=== PATIENT | female | born 1955 | race Caucasian/White ===

== ENCOUNTER 2022-08-13 21:26 | Outpatient (CLI) | payer MEDICARE, OTHER | END 2022-08-13 23:59 | disposition critical access hospital (66) | LOC: EMS 21:26 | DX: R10.11 Right upper quadrant pain (principal); R10.12 Left upper quadrant pain; R11.0 Nausea | CPT/HCPCS: A0425; A0427 ==

== ENCOUNTER 2022-08-13 21:43 | Inpatient (IN) | payer MEDICARE, OTHER ==
--- NOTE | 2022-08-13 22:07 | ED Physician Documentation ---
PD HPI ABD PAIN - Stated complaint Stated Complaint: ABD PX - Chief complaint Chief Complaint: Abd Pain - History obtained from History obtained from: Patient, EMS - Additional information Additional information: Brought in by ambulance. HPI is from patient as well as from EMS. Patient complains of abdominal pain, nausea and vomiting. The symptoms started at approximately 7:30 PM tonight while she was at home at rest. Patient denies history of similar symptoms. Patient feels as if she is constipated, feels urge to defecate despite very little stool output tonight. There are no exacerbating or ameliorating factors to these symptoms. Review of Systems Constitutional: denies: Fever, Chills, Sweats Cardiac: reports: Reviewed and negative Respiratory: reports: Reviewed and negative GI: reports: Abdominal Pain, Abdominal Swelling, Nausea, Vomiting. denies: Diarrhea, Bloody / black stool : denies: Dysuria, Frequency Musculoskeletal: denies: Back pain PD PAST MEDICAL HISTORY - Past Medical History Past Medical History: Yes Endocrine/Autoimmune: HyPOthyroidism Other Past Medical History: peripheral neuropathy - Past Surgical History Past Surgical History: No - Present Medications Home Medications: Ambulatory Orders Medication Instructions Recorded Confirmed Alendronate [Fosamax] 70 mg PO Q7D 08/14/22 08/14/22 Alpha Lipoic Acid 600 mg PO DAILY 08/14/22 08/14/22 Aspirin [Vazalore] 81 mg PO DAILY 08/14/22 08/14/22 Calcium Carbonate [Calcium] 1,200 mg PO DAILY 08/14/22 08/14/22 Cholecalciferol [Vitamin D3] 5,000 unit PO DAILY 08/14/22 08/14/22 DULoxetine [Cymbalta] 60 mg PO BID 08/14/22 08/14/22 Hydrocodone/Acetaminophen 1 each PO Q4HR PRN 08/14/22 08/14/22 [Hydrocodone-Acetamin 7.5-300] Levothyroxine [Synthroid] 112 mcg PO QDAC 08/14/22 08/14/22 Lisinopril [Zestril] 40 mg PO DAILY 08/14/22 08/14/22 Magnesium Oxide [Magnesium] 400 mg PO DAILY 08/14/22 08/14/22 Pregabalin [Lyrica] 25 mg PO DAILY 08/14/22 08/14/22 Vitamin B Complex 1 each PO DAILY 08/14/22 08/14/22 - Allergies Allergies/Adverse Reactions: Allergies Allergy/AdvReac Type Severity Reaction Status Date / Time azithromycin Allergy Unknown Verified 08/13/22 21:53 - Living Situation Living Situation: reports: With spouse/s.o. Living Arrangement: reports: At home PD ED PE NORMAL - Vitals Vital signs reviewed: Yes - General General: Alert and oriented X 3, Well developed/nourished, Other (appears to be in moderate painful distress) - HEENT HEENT: Other (dry mucous membranes) - Neck Neck: Supple, no meningeal sign - Cardiac Cardiac: RRR, No murmur - Respiratory Respiratory: No respiratory distress, Clear bilaterally - Abdomen Abdomen: Soft, Non distended, Other (TTP across lower abdomen, predominantly left-sided; no rebound tenderness) - Derm Derm: Normal color, Warm and dry Results - Vitals Vitals: Vital Signs - 24 hr 08/14/22 08/14/22 08/14/22 01:20 02:30 03:00 Heart Rate 70 73 74 Respiratory 18 18 18 Rate Blood Pressure 177/98 H 181/98 H 193/103 H O2 Saturation 93 92 92 08/14/22 08/14/22 08/14/22 04:07 04:30 05:00 Heart Rate 73 78 80 Respiratory 16 19 18 Rate Blood Pressure 191/102 H 173/100 H 160/106 H O2 Saturation 92 92 93 08/14/22 08/14/22 08/14/22 05:30 06:00 06:30 Heart Rate 79 74 90 Respiratory 21 14 19 Rate Blood Pressure 166/82 H 161/80 H 124/91 H O2 Saturation 94 94 97 08/14/22 08/14/22 08/14/22 07:00 08:00 08:30 Heart Rate 72 77 81 Respiratory 17 21 14 Rate Blood Pressure 150/75 H 178/86 H 160/77 H O2 Saturation 94 94 91 L 08/14/22 08/14/22 08/14/22 09:00 09:30 10:00 Heart Rate 81 82 87 Respiratory 15 13 14 Rate Blood Pressure 173/83 H 155/73 H 153/68 H O2 Saturation 92 91 L 91 L 08/14/22 08/14/22 08/14/22 10:30 11:00 11:30 Heart Rate 82 89 80 Respiratory 13 20 20 Rate Blood Pressure 159/70 H 122/83 H 105/61 O2 Saturation 91 L 97 95 08/14/22 08/14/22 08/14/22 12:00 12:30 13:00 Heart Rate 80 88 81 Respiratory 16 17 19 Rate Blood Pressure 104/54 L 102/81 H 144/81 H O2 Saturation 93 97 97 08/14/22 08/14/22 08/14/22 13:30 14:30 19:00 Heart Rate 84 85 90 Respiratory 16 17 18 Rate Blood Pressure 142/83 H 125/106 H O2 Saturation 91 L 95 95 08/14/22 08/14/22 08/14/22 19:30 20:00 20:30 Heart Rate 84 85 87 Respiratory 21 20 20 Rate Blood Pressure O2 Saturation 96 97 97 08/14/22 08/14/22 08/14/22 21:00 21:30 22:00 Heart Rate 80 82 86 Respiratory 17 16 19 Rate Blood Pressure O2 Saturation 92 92 91 L 08/14/22 08/14/22 08/14/22 22:30 23:00 23:30 Heart Rate 83 81 81 Respiratory 17 22 21 Rate Blood Pressure 152/92 H 164/91 H 163/90 H O2 Saturation 96 95 95 08/15/22 00:00 Heart Rate 81 Respiratory 22 Rate Blood Pressure 165/95 H O2 Saturation 95 Oxygen O2 Source Room air - Labs Labs: Laboratory Tests 08/13/22 08/13/22 08/13/22 22:03 22:03 22:24 WBC 20.5 H RBC 4.73 Hgb 14.3 Hct 44.9 MCV 94.9 MCH 30.2 MCHC 31.8 L RDW 12.9 Plt Count 317 MPV 9.9 Neut # (Auto) Not Reportable Lymph # (Auto) Not Reportable [place] # (Auto) Not Reportable Eos # (Auto) Not Reportable Baso # (Auto) Not Reportable Absolute Nucleated RBC Not Reportable Total Counted 100 Band Neuts % (Manual) 1 Reactive Lymphs % (Man) 5 Abnorm Lymph % (Manual) 0 Nucleated RBC % Not Reportable Neutrophils # (Manual) 15.2 H Lymphocytes # (Manual) 3.3 Monocytes # (Manual) 1.8 H Eosinophils # (Manual) 0.0 Basophils # (Manual) 0.2 H Differential Comment MANUAL DIFFERENTIAL Platelet Estimate NORMAL (130-450,000) Platelet Morphology NORMAL APPEARANCE RBC Morph Micro Appear NORMAL APPEARANCE Sodium 143 Potassium 4.2 Chloride 107 Carbon Dioxide 24 Anion Gap 12.0 BUN 26 H Creatinine 1.3 H Estimated GFR (MDRD) 41 L Glucose 152 H Lactic Acid Calcium 9.3 Total Bilirubin 0.8 AST 37 ALT 22 Alkaline Phosphatase 94 C-Reactive Protein < 1.0 Total Protein 7.8 Albumin 4.3 Globulin 3.5 Albumin/Globulin Ratio 1.2 Lipase 68 H Urine Color Urine Clarity Urine pH Ur Specific [place] Urine Protein Urine Glucose (UA) Urine Ketones Urine Occult Blood Urine Nitrite Urine Bilirubin Urine Urobilinogen Ur Leukocyte Esterase Ur Microscopic Review Urine Culture Comments 08/13/22 08/14/22 08/14/22 23:10 03:18 07:55 WBC 14.2 H RBC 4.67 Hgb 14.1 Hct 43.5 MCV 93.1 MCH 30.2 MCHC 32.4 RDW 13.1 Plt Count 284 MPV 10.0 Neut # (Auto) 12.0 H Lymph # (Auto) 1.1 L [place] # (Auto) 1.1 H Eos # (Auto) 0.0 Baso # (Auto) 0.0 Absolute Nucleated RBC 0.00 Total Counted Band Neuts % (Manual) Reactive Lymphs % (Man) Abnorm Lymph % (Manual) Nucleated RBC % 0.0 Neutrophils # (Manual) Lymphocytes # (Manual) Monocytes # (Manual) Eosinophils # (Manual) Basophils # (Manual) Differential Comment Platelet Estimate Platelet Morphology RBC Morph Micro Appear Sodium Potassium Chloride Carbon Dioxide Anion Gap BUN Creatinine Estimated GFR (MDRD) Glucose Lactic Acid 3.6 H* Calcium Total Bilirubin AST ALT Alkaline Phosphatase C-Reactive Protein Total Protein Albumin Globulin Albumin/Globulin Ratio Lipase Urine Color YELLOW Urine Clarity CLEAR Urine pH 5.5 Ur Specific [place] <=1.005 Urine Protein NEGATIVE Urine Glucose (UA) NEGATIVE Urine Ketones NEGATIVE Urine Occult Blood TRACE-INTA Urine Nitrite NEGATIVE Urine Bilirubin NEGATIVE Urine Urobilinogen 0.2 (NORMAL) Ur Leukocyte Esterase NEGATIVE Ur Microscopic Review NOT INDICATED Urine Culture Comments NOT INDICATED 08/14/22 08/14/22 07:55 07:55 WBC RBC Hgb Hct MCV MCH MCHC RDW Plt Count MPV Neut # (Auto) Lymph # (Auto) [place] # (Auto) Eos # (Auto) Baso # (Auto) Absolute Nucleated RBC Total Counted Band Neuts % (Manual) Reactive Lymphs % (Man) Abnorm Lymph % (Manual) Nucleated RBC % Neutrophils # (Manual) Lymphocytes # (Manual) Monocytes # (Manual) Eosinophils # (Manual) Basophils # (Manual) Differential Comment Platelet Estimate Platelet Morphology RBC Morph Micro Appear Sodium 143 Potassium 3.9 Chloride 111 Carbon Dioxide 24 Anion Gap 8.0 BUN 21 H Creatinine 0.9 Estimated GFR (MDRD) 62 L Glucose 148 H Lactic Acid 1.8 Calcium 8.5 Total Bilirubin AST ALT Alkaline Phosphatase C-Reactive Protein Total Protein Albumin Globulin Albumin/Globulin Ratio Lipase Urine Color Urine Clarity Urine pH Ur Specific [place] Urine Protein Urine Glucose (UA) Urine Ketones Urine Occult Blood Urine Nitrite Urine Bilirubin Urine Urobilinogen Ur Leukocyte Esterase Ur Microscopic Review Urine Culture Comments - Rads (name of study) CT A/P with IV and PO contrast Relevant Findings:: Prelim report reviewed, See rad report PD Medical Decision Making - ED course Complexity details: reviewed results, re-evaluated patient, considered differential, d/w patient ED course: Significant findings on blood tests include leukocytosis (WBC 20.5), elevated lactate (3.6) although normal crp, mildly elevated bun (26) and creatinine (1.3). Normal LFTs. Minimally elevated lipase (68). The CT of the abdomen pelvis is interpreted by the radiologist as "colon wall thickening of the descending and sigmoid portions consistent with colitis. infectious etiology is likely. inflammatory bowel disease is not entirely ruled out. Additioanlly, ischemic colitis is not reuled out, but the vessels are unremarkable and there is no pneumatosis. prior cholecystectomy". Patient received intravenous fentanyl by EMS on route without significant improvement in her symptoms. Of note, patient had persistent hypotensive readings early in her ER stay, with most of her systolic blood pressures in the 80s. She was given intravenous saline and, after 2 L of IV normal saline, her blood pressures improved significantly and, in fact, she subsequently had consistently hypertensive readings. This did at least allow for stronger pain medications to be given for her ongoing pain, and she was given, initially, 0.5 mg IV Dilaudid with little effect, subsequently given 1 mg IV Dilaudid with modest improvement. On subseq uent reevaluations, she continued to experience recurrent abdominal pain, at times moaning in pain. She was given more IV Dilaudid and it became increasingly apparent that patient would certainly benefit from admission to the inpatient setting for symptomatic control. Given the radiologist interpretation of the CT, with specific mention that the appearance was more suggestive of an infectious etiology, she was also given intravenous ciprofloxacin and metronidazole. During my overnight shift, there are no beds available at [facility], and thus the patient is held in the emergency department overnight and care of patient is turned over to the oncoming ER physician (Dr. Urena) at end of my shift pending bed availability. Departure - Departure Disposition: ED Place in Observation Clinical Impression: Abdominal pain, Colitis, acute Condition: Stable
[2022-08-13] MEDS ORDERED: SODIUM CHLORIDE 0.9% 1,000 ML IV STA ×2 (22:20→22:48)
[2022-08-13] MEDS ORDERED: GLYCERIN PEDIATRIC SUPP PR STA (22:20)
[2022-08-13] MEDS ORDERED: ONDANSETRON 4 MG/2 ML VIAL IVP STA (22:21)
[2022-08-13 22:23] LABS: ALBUMIN 4.3 g/dL (3.2-5.5); ALBUMIN/GLOBULIN RATIO 1.2 (1.0-2.2); BILIRUBIN,TOTAL 0.8 mg/dL (0.2-1.0); CALCIUM 9.3 mg/dL (8.5-10.3); CREATININE 1.3 mg/dL (0.4-1.0); POTASSIUM 4.2 mmol/L (3.5-5.0); TOTAL PROTEIN 7.8 g/dL (6.7-8.2)
[2022-08-13 22:29] LABS: BASOPHILS % (AUTO) 0.7 %; EOSINOPHILS % (AUTO) 0.5 %; HCT - HEMATOCRIT 44.9 % (37.0-47.0); HGB - HEMOGLOBIN 14.3 g/dL (12.0-16.0); LYMPHOCYTES % (AUTO) 10.3 %; MEAN CORPUSCULAR HEMOGLOBIN 30.2 pg (27.0-31.0); MEAN CORPUSCULAR HGB CONC 31.8 g/dL (32.0-36.0); MEAN CORPUSCULAR VOLUME 94.9 fL (81.0-99.0); MEAN PLATELET VOLUME 9.9 fL (7.9-10.8); MONOCYTES % (AUTO) 7.5 %; NEUTROPHILS % (AUTO) 80.3 %; PLT - PLATELET COUNT 317 10^3/uL (130-450); RED BLOOD COUNT 4.73 10^6/uL (4.20-5.40); RED CELL DISTRIBUTION WIDTH 12.9 % (12.0-15.0); WHITE BLOOD COUNT 20.5 x10^3/uL (4.8-10.8)
[2022-08-13 22:31] LABS: ABNORMAL LYMPHS % (MANUAL) 0 %
[2022-08-13] MEDS ORDERED: iohexoL-300 100 ML VIAL ONE (22:34)
[2022-08-13] MEDS ORDERED: DIATRIZOATE MEGLU/DIATRIZO SOD 30 ML BOTTLE PO ONE (22:34)
[2022-08-13 22:48] LABS: BAND NEUTROPHILS % (MANUAL) 1 %; BASOPHILS # (MANUAL) 0.2 10^3/uL (0-0.1); BASOPHILS % (MANUAL) 1 %; LYMPHOCYTES # (MANUAL) 3.3 10^3/uL (1.5-3.5); LYMPHOCYTES % (MANUAL) 11 %; MONOCYTES # (MANUAL) 1.8 10^3/uL (0.0-1.0); NEUTROPHILS # (MANUAL) 15.2 10^3/uL (1.5-6.6); REACTIVE LYMPHS % (MANUAL) 5 %
[2022-08-13 22:49] LABS: DIFFERENTIAL COMMENT MANUAL DIFFERENTIAL; PLATELET ESTIMATE, MANUAL NORMAL (130-450,000) (NORMAL); PLATELET MORPHOLOGY NORMAL APPEARANCE (NORMAL); RBC MORPHOLOGY (MULTIPLE) NORMAL APPEARANCE (NORMAL)
[2022-08-14] MEDS ORDERED: HYDROmorphone 1 MG/ML CARPUJECT IVP STA ×3 (02:14→07:41)
[2022-08-14] MEDS ORDERED: iohexoL-300 100 ML VIAL IVP ONE (02:31)
[2022-08-14 03:30] LABS: BILIRUBIN,URINE NEGATIVE (NEGATIVE); GLUCOSE, URINE (UA) NEGATIVE (NEGATIVE); KETONES,URINE (UA) NEGATIVE (NEGATIVE); LEUKOCYTE ESTERASE, URINE NEGATIVE (NEGATIVE); NITRITE,URINE NEGATIVE (NEGATIVE); OCCULT BLOOD,URINE TRACE-INTA (NEGATIVE); PH,URINE 5.5 PH (5.0-7.5); PROTEIN,URINE NEGATIVE (NEGATIVE); UROBILINOGEN,URINE 0.2 (NORMAL) E.U./dL (NORMAL)
[2022-08-14 03:31] LABS: CLARITY,URINE CLEAR (CLEAR)
[2022-08-14] MEDS ORDERED: SODIUM CHLORIDE 0.9% 1,000 ML IV STA ×2 (04:03)
[2022-08-14] MEDS ORDERED: CIPROFLOXACIN 400 MG/200 ML 400 MG/200 ML BAG IV STA (04:03)
[2022-08-14] MEDS ORDERED: metroNIDAZOLE 500 MG/100 ML 500 MG/100 ML BAG IV ONE (04:03)
[2022-08-14] MEDS ORDERED: ONDANSETRON 4 MG/2 ML VIAL IVP STA (07:41)
[2022-08-14 08:04] LABS: BASOPHILS % (AUTO) 0.3 %; HCT - HEMATOCRIT 43.5 % (37.0-47.0); HGB - HEMOGLOBIN 14.1 g/dL (12.0-16.0); LYMPHOCYTES # (AUTO) 1.1 10^3/uL (1.5-3.5); LYMPHOCYTES % (AUTO) 7.5 %; MEAN CORPUSCULAR HEMOGLOBIN 30.2 pg (27.0-31.0); MEAN CORPUSCULAR HGB CONC 32.4 g/dL (32.0-36.0); MEAN CORPUSCULAR VOLUME 93.1 fL (81.0-99.0); MONOCYTES # (AUTO) 1.1 10^3/uL (0.0-1.0); MONOCYTES % (AUTO) 7.4 %; NEUTROPHILS % (AUTO) 84.3 %; PLT - PLATELET COUNT 284 10^3/uL (130-450); RED BLOOD COUNT 4.67 10^6/uL (4.20-5.40); RED CELL DISTRIBUTION WIDTH 13.1 % (12.0-15.0); WHITE BLOOD COUNT 14.2 x10^3/uL (4.8-10.8)
[2022-08-14 08:10] LABS: CALCIUM 8.5 mg/dL (8.5-10.3); CREATININE 0.9 mg/dL (0.4-1.0); POTASSIUM 3.9 mmol/L (3.5-5.0)
[2022-08-14] MEDS ORDERED: KETOROLAC 15 MG/ML VIAL IVP STA (08:45)
--- NOTE | 2022-08-14 09:26 | CT Report ---
PROCEDURE: CT abdomen pelvis with contrast INDICATIONS: abdominal pain CONTRAST: 90 ML OMNI 300 TECHNIQUE: After the administration of contrast, 5 mm thick sections acquired from the diaphragms to the symphys is. 5 mm thick coronal and sagittal reformats were acquired. For radiation dose reduction, the foll owing was used: automated exposure control, adjustment of mA and/or kV according to patient size. COMPARISON: FINDINGS: Image quality: Excellent. Lung bases and heart: Unremarkable. Liver: No solid mass. Gallbladder and biliary tree: Cholecystectomy Spleen: No splenomegaly. Pancreas: No pancreatic ductal dilation. Adrenals: No adrenal nodule. Kidneys and ureters: No hydronephrosis. No renal cystic lesion which requires follow up. No solid mas s. Bowel and peritoneum: Colonic wall thickening and pericolonic inflammatory change noted involving the distal transverse and descending colon with relative sparing of the sigmoid, consistent with colitis . No pneumatosis or free air Diverticulosis without evidence of diverticulitis. Lymph nodes: No central or retroperitoneal adenopathy. Vessels: No infrarenal aortic aneurysm. PELVIS Reproductive organs: Unremarkable. Bladder: No abnormal wall thickening, accounting for underdistension. Pelvic lymph nodes: No pelvic adenopathy by size criteria. Bones: Degenerative disc disease and arthropathy Other: No significant ventral or inguinal hernia. IMPRESSION: Left-sided colitis without evidence of abscess, obstruction or pneumatosis. Differential would includ e infectious and less likely ischemic colitis Chronic changes as above Note: Final report is concordant with preliminary interpretation provided by [employer] Reviewed by: Todd Cui MD on 08/14/2022 8:25 AM MANA Approved by: Todd Cui MD on 08/14/2022 8:25 AM AKIRIS Station ID: [id number]
[2022-08-14] MEDS: HYDROmorphone 1 MG/ML CARPUJECT IVP PRN ×2 (13:21→20:05)
[2022-08-14] MEDS ORDERED: LACTATED RINGERS 1,000 ML IV STA (13:56)
--- NOTE | 2022-08-14 14:00 | ED Physician Documentation ---
ED Addendum - Addendum Addendum: 08/14/22 13:58 I have checked in on the patient periodically since change of shift this morning. She has been tolerating ice chips and was requesting sips of water or clear liquids. She has been having intermittent increases of lower abdominal crampy pain and has gotten repeat doses of pain medicine. She had received Cipro and Flagyl this morning of approximately 5 to 6 AM. I will enter repeat dosings for twice a day as well as some anti-inflammatory dosing. The patient has tenderness in the lower abdomen but no percussion no rebound. She is still not tolerating oral intake too well and needing repeat medicines for pain. As such she would still need to be maintained treatment here in the hospital. We do not have any discharges available today. I would anticipate the patient's treatment to be shorter duration with likely a day or 2. I discussed with the patient potential attempts at transfer versus continued treatment here in the ER with possible discharges later or tomorrow if she is still not well. The patient did not have a particular preference per se. I will have our assembler unit just check with nearby facilities and see if there are any beds available. However there had not been any for other patients earlier in the day so most likely the patient will maintain her hospital treatment here in the ER.
[2022-08-14] MEDS: KETOROLAC 15 MG/ML VIAL IVP SCH ×2 (18:18→21:55)
[2022-08-14] MEDS: metroNIDAZOLE 500 MG/100 ML 500 MG/100 ML BAG IV SCH ×2 (18:19→21:55)
[2022-08-14] MEDS: CIPROFLOXACIN 400 MG/200 ML 400 MG/200 ML BAG IV SCH ×2 (19:23→21:55)
[2022-08-15] MEDS: HYDROmorphone 1 MG/ML CARPUJECT IVP PRN ×3 (00:21→14:18)
--- NOTE | 2022-08-15 01:56 | ED Physician Documentation ---
ED Addendum - Addendum Addendum: 08/15/22 01:50 67-year-old female left my care at shift change was seen yesterday in the emergency department and diagnosed with colitis. She indicates to me that she had not had a bowel movement in 3 days which is quite unusual for her. She takes 7-1/2 mg hydrocodone 6 tablets/day chronically for back pain. She has not developed constipation associated with the use of this narcotic. She felt that she had severe pain associated with attempting to have a bowel movement and she reached down below to remove stool manually which she was a successful at. She continued to have a sensation of requiring a bowel movement and severe pain. She called the ambulance and was transported to the hospital. An enema was applied and the patient was able to have a full bowel movement her work-up included a CT scan of the abdomen and pelvis which demonstrated the presence of colitis in the left colon. The patient was started on Cipro and Flagyl intravenously as well as intravenous fluid. She appeared septic when she arrived here with a white count of 20,000 and a lactate of 3.8 and the source. She has had improvement overnight in her lactate and and her white blood cell count. She continues to have pain and some blood in her bowel movements. She has required intravenous Dilaudid for pain control and she remains on IV fluids. During the day today she was able to take something orally. 08/15/22 03:29 At [address] Nunez our stem assembler today and he will admit the patient for continued care.
--- NOTE | 2022-08-15 04:32 | HISTORY & PHYSICAL EXAMINATION ---
Chief Complaint - Chief Complaint Chief Complaint: abd pain History of Present Illness - History of Present Illness HPI Comment/Other: pt presents with abd pain + difficulty having bm, developing over past 1-2 days. she has h/o same about 8 yr ago, resulting in colitis, but she states symptoms were not as severe. denies fevers, chills or vomiting. while in ER, pt was hypotensive and noted to have leukocytosis. CT abd/pelvis noted L sided colitis. pt denies abdominal trauma. she does take hydrocodone daily d/t chronic back pain. History - Past Medical History Endocrine/Autoimmune: reports: HyPOthyroidism Other Past Medical History: peripheral neuropathy - Family & Social History Family History Comment/Other: htn Living arrangement: At home Living Situation: With spouse/s.o. - Substance History Use: Uses substance without health or social issues: NONE Meds/Allgy - Home Medications Home Medications: Ambulatory Orders Medication Instructions Recorded Confirmed Alendronate [Fosamax] 70 mg PO Q7D 08/14/22 08/14/22 Alpha Lipoic Acid 600 mg PO DAILY 08/14/22 08/14/22 Aspirin [Vazalore] 81 mg PO DAILY 08/14/22 08/14/22 Calcium Carbonate [Calcium] 1,200 mg PO DAILY 08/14/22 08/14/22 Cholecalciferol [Vitamin D3] 5,000 unit PO DAILY 08/14/22 08/14/22 DULoxetine [Cymbalta] 60 mg PO BID 08/14/22 08/14/22 Hydrocodone/Acetaminophen 1 each PO Q4HR PRN 08/14/22 08/14/22 [Hydrocodone-Acetamin 7.5-300] Levothyroxine [Synthroid] 112 mcg PO QDAC 08/14/22 08/14/22 Lisinopril [Zestril] 40 mg PO DAILY 08/14/22 08/14/22 Magnesium Oxide [Magnesium] 400 mg PO DAILY 08/14/22 08/14/22 Pregabalin [Lyrica] 100 mg PO TID 08/14/22 08/15/22 Vitamin B Complex 1 each PO DAILY 08/14/22 08/14/22 - Allergies Allergies/Adverse Reactions: Allergies Allergy/AdvReac Type Severity Reaction Status Date / Time azithromycin Allergy Unknown Verified 08/13/22 21:53 Review of Systems - Other Findings Other Findings: 14 pt review done with positives per hpi; all others reviewed as negative Exam - Vital Signs Vital Signs: Vital Signs x48h Pulse Resp BP Pulse Ox 08/15/22 03:30 90 21 155/88 H 95 08/15/22 03:00 82 20 147/85 H 91 L 08/15/22 02:30 83 17 146/72 H 93 08/15/22 02:00 84 17 144/70 H 92 08/15/22 01:30 85 18 91 L 08/15/22 01:00 87 17 131/67 H 92 08/15/22 00:30 85 18 133/64 H 93 08/15/22 00:00 81 22 165/95 H 95 08/14/22 23:30 81 21 163/90 H 95 08/14/22 23:00 81 22 164/91 H 95 08/14/22 22:30 83 17 152/92 H 96 08/14/22 22:00 86 19 91 L 08/14/22 21:30 82 16 92 08/14/22 21:00 80 17 92 - Physical Exam Comments/Other: gen - aaox3, uncomfortable but cooperative with questions heent - eomi, nc/at heart - rrr lungs - ctab abd - soft, diffuse tenderness, bsx4 msk - no acute trauma noted or reported Conclusion/Plan - Lab Results Fish Bones: 08/15/22 05:48 08/15/22 05:48 - Other Other Results/Comments: pt with - - colitis in setting of constipation will check stool studies continue cipro + flagyl, IVF - severe constipation in setting of opioid-induced constipation contributory to above s/p enema in ER, with good bm, feeling better pt counseled on diet and fiber supplements - abd pain d/t above tylenol and toradol prn for now holding off on opioids for now f/u labs, cultures, replete electrolytes further orders per clinical course
[2022-08-15] MEDS ORDERED: SODIUM CHLORIDE FLUSH 0.9% 10 ML SYRINGE IVP PRN (04:36)
[2022-08-15] MEDS ORDERED: ONDANSETRON ODT 4 MG TABLET TL PRN (04:53)
[2022-08-15] MEDS ORDERED: KETOROLAC 15 MG/ML VIAL IVP PRN (05:00)
[2022-08-15 05:57] LABS: BASOPHILS # (AUTO) 0.1 10^3/uL (0.0-0.1); BASOPHILS % (AUTO) 0.4 %; EOSINOPHILS # (AUTO) 0.1 10^3/uL (0.0-0.7); EOSINOPHILS % (AUTO) 0.4 %; HCT - HEMATOCRIT 39.6 % (37.0-47.0); HGB - HEMOGLOBIN 12.8 g/dL (12.0-16.0); LYMPHOCYTES # (AUTO) 1.8 10^3/uL (1.5-3.5); LYMPHOCYTES % (AUTO) 13.9 %; MEAN CORPUSCULAR HEMOGLOBIN 29.8 pg (27.0-31.0); MEAN CORPUSCULAR HGB CONC 32.3 g/dL (32.0-36.0); MEAN CORPUSCULAR VOLUME 92.3 fL (81.0-99.0); MEAN PLATELET VOLUME 9.9 fL (7.9-10.8); MONOCYTES # (AUTO) 1.2 10^3/uL (0.0-1.0); MONOCYTES % (AUTO) 9.2 %; NEUTROPHILS # (AUTO) 9.8 10^3/uL (1.5-6.6); NEUTROPHILS % (AUTO) 75.7 %; PLT - PLATELET COUNT 225 10^3/uL (130-450); RED BLOOD COUNT 4.29 10^6/uL (4.20-5.40)
[2022-08-15 06:08] LABS: ALBUMIN 3.4 g/dL (3.2-5.5); ALBUMIN/GLOBULIN RATIO 1.1 (1.0-2.2); CALCIUM 8.3 mg/dL (8.5-10.3); CREATININE 0.6 mg/dL (0.4-1.0); POTASSIUM 3.4 mmol/L (3.5-5.0); TOTAL PROTEIN 6.6 g/dL (6.7-8.2)
[2022-08-15 06:14] LABS: CHOL/HDL RATIO 2.7 (<4.4); CHOLESTEROL 155 mg/dL; HDL CHOLESTEROL 57 mg/dL; LDL CHOLESTEROL,CALCULATED 77 mg/dL; LDL/HDL RATIO 1.4 (<4.4); TRIGLYCERIDES 106 mg/dL; VLDL CHOLESTEROL 21 mg/dL
[2022-08-15] MEDS: LACTATED RINGERS 1,000 ML IV SCH ×2 (06:32→19:55)
[2022-08-15] MEDS ORDERED: ALPHA LIPOIC ACID 600 MG PO SCH (09:00)
[2022-08-15] MEDS ORDERED: lisinopriL 20 MG TABLET PO SCH (09:00)
[2022-08-15] MEDS ORDERED: metroNIDAZOLE 500 MG/100 ML 500 MG/100 ML BAG IV SCH (09:00)
[2022-08-15] MEDS ORDERED: DULoxetine 60 MG CAPSULE PO SCH (09:00)
[2022-08-15 09:29] LABS: ESTIMATED AVERAGE GLUCOSE 126 mg/dL (70-100)
[2022-08-15] MEDS: CIPROFLOXACIN 400 MG/200 ML 400 MG/200 ML BAG IV SCH ×2 (09:34→19:59)
[2022-08-15] MEDS: MAGNESIUM OXIDE 400 MG TABLET PO SCH (09:34)
[2022-08-15] MEDS: KETOROLAC 15 MG/ML VIAL IVP SCH ×2 (09:34→21:37)
[2022-08-15] MEDS: PANTOPRAZOLE 40 MG TABLET PO SCH (09:35)
[2022-08-15] MEDS: LEVOTHYROXINE 112 MCG TABLET PO SCH (09:35)
[2022-08-15] MEDS: ASPIRIN EC 81 MG TABLET PO SCH (09:36)
[2022-08-15] MEDS: CHOLECALCIFEROL 5,000 UNIT CAPSULE PO SCH (09:36)
[2022-08-15] MEDS: SODIUM CHLORIDE FLUSH 0.9% 10 ML SYRINGE IVP SCH ×3 (09:36→23:50)
[2022-08-15] MEDS: LACTOBACILLUS RHAMNOSUS GG CAPSULE PO SCH (09:36)
[2022-08-15] MEDS: CALCIUM CARB (OYSTER SHELL) 500 MG TABLET PO SCH (09:36)
--- NOTE | 2022-08-15 11:22 | PHARMACY PROGRESS NOTE ---
- Best Possible Medication History Admit Date and Time: 08/15/22 0436 Processed by: Pharmacy Medication History completed: Yes Patient Interview: Completed Secondary Source(s): Written medication list, Pharmacy records As the person ultimately responsible for medication therapy, providers are able to order a medication from an existing home medication list in [facility] via the "Reconcile Routine" prior to Confirmation of that medication by client application support engineer. Such practice is discouraged except when the physician, in their clinical judgment, deems that a medical need exists for a medication without regard to previous use.
[2022-08-15] MEDS: HYDROcod/ACETAM 7.5 MG/325 MG TABLET PO PRN ×2 (19:56→23:49)
[2022-08-15] MEDS: metroNIDAZOLE 500 MG/100 ML 500 MG/100 ML BAG IV SCH (19:59)
[2022-08-15] MEDS: PREGABALIN 100 MG CAPSULE PO SCH (21:37)
[2022-08-16] MEDS: metroNIDAZOLE 500 MG/100 ML 500 MG/100 ML BAG IV SCH ×3 (03:51→20:13)
[2022-08-16] MEDS: PREGABALIN 100 MG CAPSULE PO SCH ×3 (05:32→20:28)
[2022-08-16] MEDS: HYDROmorphone 1 MG/ML CARPUJECT IVP PRN ×2 (05:32→17:08)
[2022-08-16] MEDS: SODIUM CHLORIDE FLUSH 0.9% 10 ML SYRINGE IVP SCH ×2 (05:32→17:08)
[2022-08-16] MEDS: LEVOTHYROXINE 112 MCG TABLET PO SCH (05:33)
[2022-08-16] MEDS: LACTATED RINGERS 1,000 ML IV SCH ×2 (05:57→17:07)
--- NOTE | 2022-08-16 07:41 | PROVIDER PROGRESS NOTE ---
Subjective - Prog Note Date Prog Note Date: 08/16/22 Prog Note Time: 07:39 - Subjective Subjective: She uses a cane at home. And here she is ambulating without assistance. She still has cramps at a 5/10. Eating breakfast cause her to have cramps as did eating lunch. She had 2 bowel movements in the last 24 hours. Stool culture has been uncollected because urine is mixed with stool with those bowel movements. She has had no fever. Blood pressure has been 139 systolic to 142 systolic. Heart rate is in the 60s and 70s. White cell count started at 20.5 in the ER 08/14 and She is 13.0 today. Current Medications - Current Medications Current Medications: Active Medications Acetaminophen (Acetaminophen 325 Mg Tablet) 650 mg PO Q6HR PRN PRN Reason: Pain or Fever > 38C (100.4F) Hydrocodone Bitart/Acetaminophen (Hydrocod/Acetam 7.5 Mg/325 Mg Tablet) 1 tab PO Q4H PRN PRN Reason: PAIN 1-4 Last Admin: 08/15/22 23:49 Dose: 1 tab Aspirin (Aspirin Ec 81 Mg Tablet) 81 mg PO DAILY [facility] Last Admin: 08/15/22 09:36 Dose: 81 mg Calcium Carbonate/Glycine (Calcium Carb (Oyster Shell) 500 Mg Tablet) 1,000 mg PO DAILY [facility] Last Admin: 08/15/22 09:36 Dose: 1,000 mg Cholecalciferol (Cholecalciferol 5,000 Unit Capsule) 5,000 unit PO DAILY [facility] Last Admin: 08/15/22 09:36 Dose: 5,000 unit Hydromorphone HCl (Hydromorphone 1 Mg/Ml Carpuject) 1 mg IVP Q6H PRN PRN Reason: PAIN 5-7 Last Admin: 08/16/22 05:32 Dose: 1 mg Lactated Ringer's (Lr) 1,000 mls @ 100 mls/hr IV .Q10H [facility] Last Admin: 08/16/22 05:57 Dose: 100 mls/hr Ciprofloxacin (Cipro 400 Mg/200 Ml) 400 mg in 200 mls @ 200 mls/hr IV Q12H [facility] Last Infusion: 08/15/22 21:44 Dose: Infused Metronidazole (Flagyl 500 Mg/100 Ml) 500 mg in 100 mls @ 100 mls/hr IV Q8H [facility] Last Infusion: 08/16/22 04:51 Dose: Infused Ketorolac Tromethamine (Ketorolac 15 Mg/Ml Vial) 15 mg IVP BID [facility] Stop: 08/19/22 17:59 Last Admin: 08/15/22 21:37 Dose: 15 mg Ketorolac Tromethamine (Ketorolac 15 Mg/Ml Vial) 15 mg IVP Q8HR PRN PRN Reason: Severe Pain (Level 7-10) Stop: 08/17/22 04:59 Last Admin: 08/15/22 17:10 Dose: 15 mg Lactobacillus Rhamnosus (Lactobacillus Rhamnosus Gg Capsule) 1 cap PO DAILY [facility] Last Admin: 08/15/22 09:36 Dose: 1 cap Levothyroxine Sodium (Levothyroxine 112 Mcg Tablet) 112 mcg PO QDAC [facility] Last Admin: 08/16/22 05:33 Dose: 112 mcg Levothyroxine Sodium (Levothyroxine 75 Mcg Tablet) 150 mcg PO QDAC [facility] Lisinopril (Lisinopril 5 Mg Tablet) 5 mg PO DAILY [facility] Magnesium Oxide (Magnesium Oxide 400 Mg Tablet) 400 mg PO DAILYWM [facility] Last Admin: 08/15/22 09:34 Dose: 400 mg Ondansetron HCl (Ondansetron Odt 4 Mg Tablet) 4 mg TL Q6HR PRN PRN Reason: Nausea / Vomiting Pantoprazole Sodium (Pantoprazole 40 Mg Tablet) 40 mg PO DAILY [facility] Last Admin: 08/15/22 09:35 Dose: 40 mg Pregabalin (Pregabalin 100 Mg Capsule) 100 mg PO TID [facility] Last Admin: 08/16/22 05:32 Dose: 100 mg Sodium Chloride (Sodium Chloride Flush 0.9% 10 Ml Syringe) 10 ml IVP PRN PRN PRN Reason: NEEDED PER PROVIDER ORDERS Sodium Chloride (Sodium Chloride Flush 0.9% 10 Ml Syringe) 10 ml IVP 0100,0900,1700 [facility] Last Admin: 08/16/22 05:32 Dose: 10 ml Alpha Lipoic Acid 600 mg PO DAILY 08/14/22 Aspirin [[place]] 81 mg PO DAILY 08/14/22 Cholecalciferol [Vitamin D3] 5,000 unit PO DAILY 08/14/22 Lisinopril [Zestril] 40 mg PO DAILY 08/14/22 Magnesium Oxide [Magnesium] 400 mg PO DAILY 08/14/22 Pregabalin [Lyrica] 100 mg PO TID 08/14/22 Vitamin B Complex 1 each PO DAILY 08/14/22 Calcium Carb (Oyster Shell) [[place]-500] 3 tab PO BID 08/15/22 HYDROcodone/ACET 7.5/325 [[place] 7.5/325] 1 tab PO Q4H PRN 08/15/22 Levothyroxine Sodium [Synthroid] 1 tab PO DAILY 08/15/22 Objective - Vital Signs/Intake & Output Reviewed Vital Signs: Yes Vital Signs: Vital Signs x48h Temp Pulse Resp BP Pulse Ox 08/16/22 05:56 36.7 C 79 16 142/79 H 94 08/16/22 03:16 37.0 C 69 16 139/69 H 95 08/15/22 23:40 36.4 C L 68 16 116/60 98 Intake & Output: Intake & Output 08/13/22 08/14/22 08/15/22 08/16/22 23:59 23:59 23:59 23:59 Intake Total 1000 4600 2830.000 1450 Output Total 1700 700 Balance 1000 4600 1130.000 750 - Objective General Appearance: positive: No acute distress, Alert Eyes Bilateral: positive: EOMI ENT: positive: No signs of dehydration Neck: positive: No JVD. negative: Stiff neck Respiratory: positive: No respiratory distress. negative: Wheezes, Rales, Rhonchi Cardiovascular: positive: Regular rate & rhythm, Systolic murmur Abdomen: positive: Tenderness (But no rebound or guarding, and she has slight distention, borborygmi is loud) Skin: positive: Warm, Dry Extremities: positive: Full ROM, No pedal edema Neurologic/Psychiatric: positive: Oriented x3, CN's nml (2-12), Motor nml - Lab Results Fish Bones: 08/15/22 05:48 08/15/22 05:48 Other Labs: Lab Results x24hrs 08/15/22 08/15/22 Range/Units 05:48 05:48 Estimat Average Glucose 126 H (70-100) mg/dL Hemoglobin A1c % 6.0 (4.27-6.07) % Free T4 0.88 (0.58-1.64) ng/dL ABX Reporting Has patient been on IV antibiotics over the past 48 hours?: Yes Assessment/Plan - Problem List (1) Colitis, acute Impression: Patient presenting with diffuse abdominal pain, cramping, anorexia. In the emergency room objective evaluation showed a white cell count of 20.5. A lactic acidosis of 3.8. A CT scan showed colitis from the transverse bowel down to the proximal sigmoid. She is eating 50 to 75% of her food. She has been afebrile. White cell count has gone from 20.5 and is now 13.0. Day 2 of Cipro and Flagyl Plan: +I will Continue antibiotics and changed to oral tomorrow morning. Anticipate white cell count will go down to almost normal by then. Gratifying to see that she is afebrile. +Advance diet from clear liquid to as tolerated. +encourgage ambulation to reduce atelectasis and DVT risk (2) Constipation due to opioid therapy Impression: Home medication use is magnesium oxide for this problem. In discussion with the patient, I have discussed: + Increasing her magnesium salt to twice a day + Bulk forming laxatives such as Benefiber with increased water on a daily basis + Docusate on a daily basis If these is insufficient consider: + Contact cathartic such as bisacodyl or cascara, senna + Naloxegol + Subcutaneous methylnaltrexone + Face combination of extended release oral oxycodone and Lanoxin at a 2:1 ratio + Chloride channel activator such as lubiprostone (3) Hyperglycemia Impression: Yesterday morning her glucose was 148. Repeat glucose, fasting, this morning is 126. This was evaluated with an A1c which is 6%. As such her diagnosis is mostly diet-controlled diabetes type 2. Plan: When we advance her diet, advance to carb restricted diet. Patient advised about her diagnosis and to follow-up with PCP in the outpatient setting to have this monitored on a regular basis
[2022-08-16] MEDS: KETOROLAC 15 MG/ML VIAL IVP SCH ×2 (08:19→20:23)
[2022-08-16] MEDS: CIPROFLOXACIN 400 MG/200 ML 400 MG/200 ML BAG IV SCH ×2 (08:19→20:30)
[2022-08-16] MEDS: LACTOBACILLUS RHAMNOSUS GG CAPSULE PO SCH (08:24)
[2022-08-16] MEDS: ASPIRIN EC 81 MG TABLET PO SCH (08:24)
[2022-08-16] MEDS: CHOLECALCIFEROL 5,000 UNIT CAPSULE PO SCH (08:24)
[2022-08-16] MEDS: PANTOPRAZOLE 40 MG TABLET PO SCH (08:24)
[2022-08-16] MEDS: lisinopriL 5 MG TABLET PO SCH (08:25)
[2022-08-16] MEDS: MAGNESIUM OXIDE 400 MG TABLET PO SCH (08:25)
[2022-08-16] MEDS ORDERED: lisinopriL 5 MG TABLET PO SCH (09:00)
[2022-08-16] MEDS: HYDROcod/ACETAM 7.5 MG/325 MG TABLET PO PRN ×3 (09:33→20:23)
[2022-08-16] MEDS: CALCIUM CARB (OYSTER SHELL) 500 MG TABLET PO SCH (09:34)
[2022-08-17] MEDS: SODIUM CHLORIDE FLUSH 0.9% 10 ML SYRINGE IVP SCH ×4 (00:14→23:34)
[2022-08-17] MEDS: HYDROmorphone 1 MG/ML CARPUJECT IVP PRN ×4 (00:14→19:51)
[2022-08-17] MEDS: LACTATED RINGERS 1,000 ML IV SCH ×2 (03:34→16:58)
[2022-08-17] MEDS: metroNIDAZOLE 500 MG/100 ML 500 MG/100 ML BAG IV SCH ×2 (03:39→12:06)
[2022-08-17] MEDS: LEVOTHYROXINE 75 MCG TABLET PO SCH (06:44)
[2022-08-17] MEDS: PREGABALIN 100 MG CAPSULE PO SCH ×3 (06:44→21:03)
[2022-08-17 07:49] LABS: BASOPHILS % (AUTO) 0.6 %; EOSINOPHILS # (AUTO) 0.2 10^3/uL (0.0-0.7); EOSINOPHILS % (AUTO) 3.3 %; HCT - HEMATOCRIT 35.6 % (37.0-47.0); HGB - HEMOGLOBIN 11.5 g/dL (12.0-16.0); LYMPHOCYTES # (AUTO) 0.9 10^3/uL (1.5-3.5); LYMPHOCYTES % (AUTO) 14.8 %; MEAN CORPUSCULAR HGB CONC 32.3 g/dL (32.0-36.0); MONOCYTES # (AUTO) 0.5 10^3/uL (0.0-1.0); MONOCYTES % (AUTO) 7.8 %; NEUTROPHILS # (AUTO) 4.7 10^3/uL (1.5-6.6); NEUTROPHILS % (AUTO) 73.2 %; PLT - PLATELET COUNT 217 10^3/uL (130-450); RED BLOOD COUNT 3.83 10^6/uL (4.20-5.40); RED CELL DISTRIBUTION WIDTH 12.8 % (12.0-15.0); WHITE BLOOD COUNT 6.4 x10^3/uL (4.8-10.8)
[2022-08-17 07:59] LABS: BUN - BLOOD UREA NITROGEN < 5 mg/dL (6-20); CARBON DIOXIDE - CO2 27 mmol/L (21-32); CHLORIDE 105 mmol/L (101-111); CREATININE 0.7 mg/dL (0.4-1.0); GFR - MDRD 83 (>89); GLUCOSE 107 mg/dL (70-100); POTASSIUM 2.9 mmol/L (3.5-5.0); SODIUM 140 mmol/L (135-145)
[2022-08-17] MEDS: LACTOBACILLUS RHAMNOSUS GG CAPSULE PO SCH (08:31)
[2022-08-17] MEDS: ASPIRIN EC 81 MG TABLET PO SCH (08:32)
[2022-08-17] MEDS: PANTOPRAZOLE 40 MG TABLET PO SCH (08:32)
[2022-08-17] MEDS: MAGNESIUM OXIDE 400 MG TABLET PO SCH (08:32)
[2022-08-17] MEDS: lisinopriL 5 MG TABLET PO SCH (08:32)
[2022-08-17] MEDS: CHOLECALCIFEROL 5,000 UNIT CAPSULE PO SCH (08:33)
[2022-08-17] MEDS: KETOROLAC 15 MG/ML VIAL IVP SCH (08:33)
[2022-08-17] MEDS: CIPROFLOXACIN 400 MG/200 ML 400 MG/200 ML BAG IV SCH (08:42)
[2022-08-17] MEDS: HYDROcod/ACETAM 7.5 MG/325 MG TABLET PO PRN ×2 (08:43→16:58)
[2022-08-17] MEDS: CALCIUM CARB (OYSTER SHELL) 500 MG TABLET PO SCH (08:43)
[2022-08-17] MEDS: ACETAMINOPHEN 325 MG TABLET PO PRN (11:19)
[2022-08-17] MEDS: POTASSIUM BICARB 25 MEQ TABLET PO SCH ×2 (13:46→21:03)
--- NOTE | 2022-08-17 16:40 | PROVIDER PROGRESS NOTE ---
Progress Note August 17, 2022 4:40 PM In speaking to her about her previous bowel history, she said that she has had 2 previous colonoscop[address] Wilbur Funk and the other one was a bisque brusher at [facility]. To her knowledge her colonoscopies have been normal. She is due for a screening colonoscopy and is already been interviewed by the bisque brusher at [facility]. She should be scheduled for the scope in the next few weeks. She usually has no bowel problems. In spite of her chronic opioid use, bowel movements are soft, and daily. There is usually no complaints of constipation. Abdominal pain. Nor does she have bleeding. This episode was "out of the blue". She stopped having bowel movements 3 days before admission without any change in diet or medications. And then when the abdominal pain got so bad and she could not force herself to defecate she came to the ER. She is tolerating her clear liquid diet. Sometimes her belly gets a little bit distended with this but no pain or vomiting. Vitals: Temperature 36.6, heart rate 70, blood pressure 151/80, respirations 18, 97% on room air Alert oriented white female who looks stated age. Sitting comfortably in bed and has just finished her clear liquid breakfast and clear liquid lunch without any deficits. Neck is supple without JVD or bruits Lungs are clear of any respiratory distress, crackles, rhonchi or wheezing Regular rate and rhythm Abdomen is soft, still slightly protuberant and distended, and achy but not tender. The achiness is diffuse with palpation. Normal bowel sounds. No rebound or guarding. Extremities are without any edema and she has full range of motion She is able to walk the hallways and is doing laps around [employer] with her IV pole as her balance Labs: BMP shows a potassium of 2.9, BUN less than 5, creatinine 0.7. Fasting glucose 107. August 15 her A1c was 6.0%. White cell count is normal at 6.4. She was admitted at 20.5. It has been steadily coming down on a daily basis. Hemoglobin has also come down to 11.5 and she was 14.3 on admission. Platelets are normal at 217. Assessment/Plan - Problem List (1) Colitis, acute Impression: Patient presenting with diffuse abdominal pain, cramping, anorexia. In the emergency room objective evaluation showed a white cell count of 20.5. A lactic acidosis of 3.8. A CT scan showed colitis from the transverse bowel down to the proximal sigmoid. She is eating 25 to 100% of her food today. She has been afebrile. White cell count has gone from 20.5>13.0>6.4 today. She is not having diarrhea. In trying to evaluate why this patient had acute colitis, there is no reason for her to have ischemic colitis. Colitis seems to be resolving with empiric antibiotics. Pain is controlled with [place] 5/325. 2 doses were given on the . 3 doses were given on the . Today, she has only taken 1 dose so far. Day 3 of Cipro and Flagyl Plan: +Change to oral antibiotics today.I ordered Cipro 500 twice daily and Flagyl 500 3 times daily +Continue to advance diet +I told her that I think is a great idea that she is walking around the hospital. To continue to do so to reduce risk of DVT and to improve her chances of getting home quicker (2) Constipation due to opioid therapy,Acute Impression: Yesterday I thought that this problem was a chronic problem. But she has daily bowel movements and is mystified by why all of a sudden she stopped having bowel movements. None of her medications have changed. Her diet is the same. Fluid intake is the same. She takes occasional fiber and stool softeners. For the outpatient setting, the most I would recommend is making sure she is drinking 32 to 48 ounces of water a day. And increase magnesium oxide to twice a day from once a day. (3) Hyperglycemia Impression: Fasting glucose August 15 was 148.. Repeat glucose, fasting, August 16 was 126. This was evaluated with an A1c which is 6%. As such her diagnosis is mostly diet-controlled diabetes type 2. Plan: When we advance her diet, advance to carb restricted diet. Patient advised about her diagnosis and to follow-up with PCP in the outpatient setting to have this monitored on a regular basis
[2022-08-17] MEDS: metroNIDAZOLE 250 MG TABLET PO SCH (16:58)
[2022-08-17] MEDS: CIPROFLOXACIN 250 MG TABLET PO SCH (21:03)
[2022-08-18] MEDS: HYDROmorphone 1 MG/ML CARPUJECT IVP PRN ×4 (00:07→22:42)
[2022-08-18] MEDS: LACTATED RINGERS 1,000 ML IV SCH ×2 (03:10→14:18)
[2022-08-18] MEDS: LEVOTHYROXINE 75 MCG TABLET PO SCH (05:40)
[2022-08-18] MEDS: PREGABALIN 100 MG CAPSULE PO SCH ×3 (05:40→20:59)
[2022-08-18 06:08] LABS: BASOPHILS # (AUTO) 0.1 10^3/uL (0.0-0.1); BASOPHILS % (AUTO) 0.8 %; EOSINOPHILS # (AUTO) 0.4 10^3/uL (0.0-0.7); EOSINOPHILS % (AUTO) 4.5 %; HCT - HEMATOCRIT 32.5 % (37.0-47.0); HGB - HEMOGLOBIN 10.6 g/dL (12.0-16.0); LYMPHOCYTES # (AUTO) 1.6 10^3/uL (1.5-3.5); LYMPHOCYTES % (AUTO) 20.9 %; MEAN CORPUSCULAR HEMOGLOBIN 30.2 pg (27.0-31.0); MEAN CORPUSCULAR HGB CONC 32.6 g/dL (32.0-36.0); MEAN CORPUSCULAR VOLUME 92.6 fL (81.0-99.0); MONOCYTES # (AUTO) 0.8 10^3/uL (0.0-1.0); MONOCYTES % (AUTO) 9.9 %; NEUTROPHILS # (AUTO) 4.9 10^3/uL (1.5-6.6); NEUTROPHILS % (AUTO) 63.5 %; PLT - PLATELET COUNT 218 10^3/uL (130-450); RED BLOOD COUNT 3.51 10^6/uL (4.20-5.40); RED CELL DISTRIBUTION WIDTH 12.9 % (12.0-15.0); WHITE BLOOD COUNT 7.7 x10^3/uL (4.8-10.8)
[2022-08-18 06:21] LABS: BUN - BLOOD UREA NITROGEN < 5 mg/dL (6-20); CALCIUM 7.9 mg/dL (8.5-10.3); CARBON DIOXIDE - CO2 29 mmol/L (21-32); CHLORIDE 109 mmol/L (101-111); CREATININE 0.6 mg/dL (0.4-1.0); GFR - MDRD 99 (>89); GLUCOSE 113 mg/dL (70-100); POTASSIUM 3.4 mmol/L (3.5-5.0); SODIUM 141 mmol/L (135-145)
[2022-08-18] MEDS: SODIUM CHLORIDE FLUSH 0.9% 10 ML SYRINGE IVP SCH ×4 (08:29→22:42)
[2022-08-18] MEDS: lisinopriL 5 MG TABLET PO SCH (08:29)
[2022-08-18] MEDS: metroNIDAZOLE 250 MG TABLET PO SCH ×3 (08:29→16:24)
[2022-08-18] MEDS: CIPROFLOXACIN 250 MG TABLET PO SCH ×2 (08:30→20:59)
[2022-08-18] MEDS: LACTOBACILLUS RHAMNOSUS GG CAPSULE PO SCH (08:30)
[2022-08-18] MEDS: MAGNESIUM OXIDE 400 MG TABLET PO SCH (08:30)
[2022-08-18] MEDS: CHOLECALCIFEROL 5,000 UNIT CAPSULE PO SCH (08:30)
[2022-08-18] MEDS: CALCIUM CARB (OYSTER SHELL) 500 MG TABLET PO SCH (08:30)
[2022-08-18] MEDS: ASPIRIN EC 81 MG TABLET PO SCH (08:30)
[2022-08-18] MEDS: PANTOPRAZOLE 40 MG TABLET PO SCH (08:30)
--- NOTE | 2022-08-18 16:34 | PROVIDER PROGRESS NOTE ---
Progress Note August 18, 2022 4:30 PM I have switched over to oral antibiotics, and advance her diet. Starting last night, with solid food, her abdominal pain is gotten more severe. Where it was more of a mild diffuse crampy pain, now it comes in waves. Waxes and wanes. It is diffuse and not localized. It has a tendency to make her have an urge to defecate. She gets up and sits on the toilet and waves of cramping hit her so hard that she breaks out in a cold sweat, and feels lightheaded. There is no blood in the stool. She has not had any fevers. No hypotension or tachycardia. Active Medications Acetaminophen (Acetaminophen 325 Mg Tablet) 650 mg PO Q6HR PRN PRN Reason: Pain or Fever > 38C (100.4F) Last Admin: 08/17/22 11:19 Dose: 650 mg Hydrocodone Bitart/Acetaminophen (Hydrocod/Acetam 7.5 Mg/325 Mg Tablet) 1 tab PO Q4H PRN PRN Reason: PAIN 1-4 Last Admin: 08/17/22 16:58 Dose: 1 tab Aspirin (Aspirin Ec 81 Mg Tablet) 81 mg PO DAILY [facility] Last Admin: 08/18/22 08:30 Dose: 81 mg Calcium Carbonate/Glycine (Calcium Carb (Oyster Shell) 500 Mg Tablet) 1,000 mg PO DAILY [facility] Last Admin: 08/18/22 08:30 Dose: 1,000 mg Cholecalciferol (Cholecalciferol 5,000 Unit Capsule) 5,000 unit PO DAILY [facility] Last Admin: 08/18/22 08:30 Dose: 5,000 unit Ciprofloxacin (Ciprofloxacin 250 Mg Tablet) 500 mg PO BID [facility] Stop: 08/27/22 20:59 Last Admin: 08/18/22 08:30 Dose: 500 mg Hydromorphone HCl (Hydromorphone 1 Mg/Ml Carpuject) 1 mg IVP Q6H PRN PRN Reason: PAIN 5-7 Last Admin: 08/18/22 14:04 Dose: 1 mg Lactated Ringer's (Lr) 1,000 mls @ 100 mls/hr IV .Q10H [facility] Last Admin: 08/18/22 14:18 Dose: 100 mls/hr Potassium Chloride (Potassium Chloride) 10 meq in 100 mls @ 100 mls/hr IV Q1H [facility] Stop: 08/18/22 20:59 Lactobacillus Rhamnosus (Lactobacillus Rhamnosus Gg Capsule) 1 cap PO DAILY [facility] Last Admin: 08/18/22 08:30 Dose: 1 cap Levothyroxine Sodium (Levothyroxine 75 Mcg Tablet) 150 mcg PO QDAC [facility] Last Admin: 08/18/22 05:40 Dose: 150 mcg Lisinopril (Lisinopril 5 Mg Tablet) 5 mg PO DAILY [facility] Last Admin: 08/18/22 08:29 Dose: 5 mg Magnesium Oxide (Magnesium Oxide 400 Mg Tablet) 400 mg PO DAILYWM [facility] Last Admin: 08/18/22 08:30 Dose: 400 mg Metronidazole (Metronidazole 250 Mg Tablet) 500 mg PO TIDWM [facility] Last Admin: 08/18/22 16:24 Dose: 500 mg Ondansetron HCl (Ondansetron Odt 4 Mg Tablet) 4 mg TL Q6HR PRN PRN Reason: Nausea / Vomiting Pantoprazole Sodium (Pantoprazole 40 Mg Tablet) 40 mg PO DAILY [facility] Last Admin: 08/18/22 08:30 Dose: 40 mg Pregabalin (Pregabalin 100 Mg Capsule) 100 mg PO TID [facility] Last Admin: 08/18/22 14:05 Dose: 100 mg Sodium Chloride (Sodium Chloride Flush 0.9% 10 Ml Syringe) 10 ml IVP PRN PRN PRN Reason: NEEDED PER PROVIDER ORDERS Last Admin: 08/17/22 06:55 Dose: 10 ml Sodium Chloride (Sodium Chloride Flush 0.9% 10 Ml Syringe) 10 ml IVP 0100,0900,1700 [facility] Last Admin: 08/18/22 15:49 Dose: Not Given Exam: Vitals temperature is 36.7. She has remained afebrile. Heart rate 63. Blood pressure 135/81. Respirations 18. 96% on room air. 5 feet 7 inches tall, 79 kg Pale, diaphoretic middle-aged female, laying in bed, cold washcloth on face, and cold washcloth on neck to try and make yourself feel better from the nausea and diaphoresis. She is clearly uncomfortable from the abdominal distention and abdomen is distended and bloated. Neck is supple Lungs are clear there is no tachypnea or shortness of breath Regular rate and rhythm, no tachycardia Abdomen is protuberant, soft, tympanitic, loud borborygmi, diffuse pain at a 6 out of a 10 but there is no rebound or guarding. No masses palpable. Extremities with trace edema around the ankles. Neurologically she is alert, oriented to person place and time. Yesterday she was walking the hallways but today she is keeping her room because she is so miserable. Able to sit up on her own, ambulate on her own. Labs: Sodium 141, potassium 3.4. Yesterday it was 2.9 and she received 25 mEq of potassium effervescence in the morning and in the evening and again this morning. BUN and less than 5, creatinine 0.6. Random glucose 113. White cell count is normal at 7.7. When she was admitted she was 20.5. Hemoglobin has drifted down. On admission she was 14.3. Yesterday she was 11.5 and today 10.6 Platelets are 218 Stool culture has been received, and results are pending Assessment/Plan - Problem List (1) Colitis, acute Impression: Patient presenting with diffuse abdominal pain, cramping, anorexia. In the emergency room objective evaluation showed a white cell count of 20.5. A lactic acidosis of 3.8. A CT scan showed colitis from the transverse bowel down to the proximal sigmoid. She was eating 25 to 100% of her food yesterday, soft diet but it is not being tolerated. She feels like it has caused worse distension and cramping. She has been afebrile. White cell count has gone from 20.5>13.0>6.4>7.7 today. She is not having diarrhea. In trying to evaluate why this patient had acute colitis, there is no reason for her to have ischemic colitis. Colitis seems to be resolving with empiric antibiotics. Pain was controlled with [place] 5/325. 2 doses were given on the . 3 doses were given on the . 2 doses on the . However today she is requiring Dilaudid IVP She has received 3 doses of 1 mg IV push since midnight last night. I switched her from IV to p.o. antibiotics yesterday August 17.Exam shows a more distended abdomen. She also looks vasovagal from visceral abdominal pain. Day 4 of Cipro and Flagyl Plan: Regress on the diet and go back to a full liquid. She prefers applesauce, broth, Jell-O right now Check stat KUB of the abdomen and make sure she is not developing ileus or partial obstruction I will continue with p.o. Cipro and Flagyl based on the fact that her white cell count is not elevated, she does not have a fever. I will evaluate stool cultures once they are available and see if I need to change treatment or management (2) Constipation due to opioid therapy,Acute Impression: I thought that this problem was a chronic problem. But she has daily bowel movements and is mystified by why all of a sudden she stopped having bowel movements. None of her medications have changed. Her diet is the same. Fluid intake is the same. She takes occasional fiber and stool softeners. For the outpatient setting, the most I would recommend is making sure she is drinking 32 to 48 ounces of water a day. And increase magnesium oxide to twice a day from once a day. (3) Hyperglycemia Impression: Fasting glucose August 15 was 148. Repeat glucose, fasting, August 16 was 126. This was evaluated with an A1c which is 6%. As such her diagnosis is mostly diet-controlled diabetes type 2. Plan: When we advance her diet, advance to carb restricted diet. Patient advised about her diagnosis and to follow-up with PCP in the outpatient setting to have this monitored on a regular basis (4) Hypokalemia Supplement with the IV potassium rider today. She is not tolerating p.o. well. Recheck in the morning
[2022-08-18] MEDS: POTASSIUM CHLOR 10 MEQ/100 ML 10 MEQ/100 ML BAG IV SCH ×4 (16:52→20:59)
--- NOTE | 2022-08-18 16:59 | XRAY Report ---
PROCEDURE: Abdomen 1 View X-Ray INDICATIONS: worsening abd pain in colitis TECHNIQUE: One view of the abdomen acquired. COMPARISON: None. FINDINGS: Surgical changes and devices: None. Bowel: Mild gaseous distention of the small large bowel. Soft tissues: No suspicious abdominal calcifications. Visualized solid organ contours appear normal in size. Bones: No suspicious bony lesions. IMPRESSION: Mild gaseous distention of the small and large bowel, probably adynamic ileus. Reviewed by: Wilbur Rubio on 08/18/2022 4:57 PM PDT Approved by: Wilbur Rubio on 08/18/2022 4:57 PM PDT Station ID: [id number]
[2022-08-18] MEDS: HYDROcod/ACETAM 7.5 MG/325 MG TABLET PO PRN (18:28)
[2022-08-19] MEDS: LACTATED RINGERS 1,000 ML IV SCH ×4 (00:42→22:36)
[2022-08-19] MEDS: HYDROmorphone 1 MG/ML CARPUJECT IVP PRN (05:14)
[2022-08-19 05:16] LABS: BASOPHILS # (AUTO) 0.1 10^3/uL (0.0-0.1); BASOPHILS % (AUTO) 1.3 %; EOSINOPHILS # (AUTO) 0.4 10^3/uL (0.0-0.7); EOSINOPHILS % (AUTO) 6.8 %; HCT - HEMATOCRIT 35.3 % (37.0-47.0); HGB - HEMOGLOBIN 11.1 g/dL (12.0-16.0); LYMPHOCYTES # (AUTO) 1.6 10^3/uL (1.5-3.5); LYMPHOCYTES % (AUTO) 28.1 %; MEAN CORPUSCULAR HEMOGLOBIN 29.1 pg (27.0-31.0); MEAN CORPUSCULAR HGB CONC 31.4 g/dL (32.0-36.0); MEAN CORPUSCULAR VOLUME 92.4 fL (81.0-99.0); MEAN PLATELET VOLUME 10.4 fL (7.9-10.8); MONOCYTES # (AUTO) 0.7 10^3/uL (0.0-1.0); MONOCYTES % (AUTO) 12.1 %; NEUTROPHILS # (AUTO) 2.8 10^3/uL (1.5-6.6); NEUTROPHILS % (AUTO) 50.4 %; PLT - PLATELET COUNT 234 10^3/uL (130-450); RED BLOOD COUNT 3.82 10^6/uL (4.20-5.40); RED CELL DISTRIBUTION WIDTH 12.6 % (12.0-15.0); WHITE BLOOD COUNT 5.6 x10^3/uL (4.8-10.8)
[2022-08-19 05:26] LABS: BUN - BLOOD UREA NITROGEN < 5 mg/dL (6-20); CALCIUM 8.4 mg/dL (8.5-10.3); CARBON DIOXIDE - CO2 27 mmol/L (21-32); CHLORIDE 109 mmol/L (101-111); CREATININE 0.6 mg/dL (0.4-1.0); GFR - MDRD 99 (>89); GLUCOSE 111 mg/dL (70-100); POTASSIUM 3.6 mmol/L (3.5-5.0); SODIUM 143 mmol/L (135-145)
[2022-08-19] MEDS: PREGABALIN 100 MG CAPSULE PO SCH ×3 (05:35→21:22)
[2022-08-19] MEDS: LEVOTHYROXINE 75 MCG TABLET PO SCH (05:35)
[2022-08-19] MEDS: CHOLECALCIFEROL 5,000 UNIT CAPSULE PO SCH (08:30)
[2022-08-19] MEDS: CIPROFLOXACIN 250 MG TABLET PO SCH ×2 (08:30→21:22)
[2022-08-19] MEDS: lisinopriL 5 MG TABLET PO SCH (08:30)
[2022-08-19] MEDS: HYDROcod/ACETAM 7.5 MG/325 MG TABLET PO PRN ×4 (08:30→21:22)
[2022-08-19] MEDS: metroNIDAZOLE 250 MG TABLET PO SCH ×3 (08:31→17:07)
[2022-08-19] MEDS: PANTOPRAZOLE 40 MG TABLET PO SCH (08:31)
[2022-08-19] MEDS: ASPIRIN EC 81 MG TABLET PO SCH (08:31)
[2022-08-19] MEDS: LACTOBACILLUS RHAMNOSUS GG CAPSULE PO SCH (08:31)
[2022-08-19] MEDS: CALCIUM CARB (OYSTER SHELL) 500 MG TABLET PO SCH (08:31)
[2022-08-19] MEDS: MAGNESIUM OXIDE 400 MG TABLET PO SCH (08:31)
--- NOTE | 2022-08-19 10:24 | PROVIDER PROGRESS NOTE ---
Progress Note August 19, 2022 10:21 AM Sitting up in chair today. Did clear liquids just fine last night. Tried pured diet this morning and abdominal cramping ensued within about 10 minutes. Again, comes in waves. Diffuse. Not localized. The urge to defecate is not as severe. She is not breaking out in a cold sweat with this this morning. No blood in stool. Yesterday I ordered a KUB to make sure I was not missing free air. The KUB shows gaseous distention of the small bowel, compatible with adynamic ileus. It is also present in the large bowel. Exam: Temperature 36.6, heart rate 62, blood pressure 154/87, respirations 16 Alert oriented middle-aged female sitting up in chair, not nearly as distressed or anxious as yesterday morning. Neck is supple Lungs are clear to auscultation and percussion without respiratory distress Regular rate and rhythm Abdomen is soft, slightly distended, hypoactive bowel sounds, 2 out of 10 tenderness. No rebound or guarding. Extremities are without edema Lab: CMP is normal. Glucose is 111. Calcium 8.4. CBC shows a stable anemia. When she was admitted she was 14.1 g of hemoglobin and she is drifted down. Yesterday she was 10.6, today 11.1. I attributed this to dilution from IV fluids as well as probable blood loss. Sed rate is 36 today. White cell count is 5.6 and normal. Assessment/Plan - Problem List (1) Colitis, acute with ileus Impression: This is a lady who has sudden onset of abdominal pain. Came to the emergency room. CAT scan showed colitis of the distal transverse and down the descending colon to the proximal sigmoid. White cell count was 20.5 thousand. She was started on empiric antibiotic therapy. Clear liquids. By the I advance her diet, switch her over to p.o. Antibiotics. With that she had a backwards course not a progressive course. Abdominal pain became severe enough that she was having vasovagal reactions to the visceral pain on the .. I ordered a KUB and the KUB shows ileus. I switched her to a full liquid diet and kept her on p.o. antibiotics. White cell count continues to be remain normal. She is 5.6 today. Sedimentation rate, however, is elevated at 36. She is afebrile. Plan: Continue inpatient stay until the patient is able to take enough p.o. to her safely go home. Keep on full liquid diet. Keep on IV fluids for hydration. She is going to get up and take a shower today. Continue to walk in the hallways. (2) Constipation due to opioid therapy,Acute Impression: I initially thought that this was a chronic problem. But she says that she has normal bowel movements prior to this incident of abdominal pain. So the most I am recommending is 32 to 48 ounces of water a day, and increasing her magnesium oxide from once a day to twice a day. (3) Hyperglycemia Impression: Random glucose was elevated on admission. Fasting glucose was 148 on August 15. A1c was 6%. So I feel that she most likely has borderline diet-controlled diabetes type 2. I am recommending outpatient carb restricted diet, and follow- up with her PCP to make sure that this is monitored on a regular basis. (4) Hypokalemia She has had intermittent supplementation with p.o. and IV potassium. Yesterday she received potassium riders. Today potassium is normal. Plan: Continue to monitor daily and supplement as needed (5) hypertension At home she is on lisinopril 40 mg a day. I only resumed 5 mg to avoid giving her hypotension in the face of fluid shifts. Intermittent and infrequent systolic elevation at 149, 151, 156. Diastolic to 94. Plan: Increase to 10 mg of lisinopril.
[2022-08-19] MEDS ORDERED: lisinopriL 5 MG TABLET PO ONE (12:00)
[2022-08-19] MEDS: SODIUM CHLORIDE FLUSH 0.9% 10 ML SYRINGE IVP SCH (21:22)
[2022-08-20] MEDS: HYDROmorphone 1 MG/ML CARPUJECT IVP PRN ×3 (04:42→23:53)
[2022-08-20 06:09] LABS: BASOPHILS # (AUTO) 0.1 10^3/uL (0.0-0.1); BASOPHILS % (AUTO) 0.8 %; EOSINOPHILS # (AUTO) 0.3 10^3/uL (0.0-0.7); EOSINOPHILS % (AUTO) 4.7 %; HCT - HEMATOCRIT 33.8 % (37.0-47.0); LYMPHOCYTES # (AUTO) 1.3 10^3/uL (1.5-3.5); MEAN CORPUSCULAR HEMOGLOBIN 29.8 pg (27.0-31.0); MEAN CORPUSCULAR HGB CONC 32.5 g/dL (32.0-36.0); MEAN CORPUSCULAR VOLUME 91.6 fL (81.0-99.0); MEAN PLATELET VOLUME 9.6 fL (7.9-10.8); MONOCYTES # (AUTO) 0.9 10^3/uL (0.0-1.0); MONOCYTES % (AUTO) 13.8 %; NEUTROPHILS # (AUTO) 3.9 10^3/uL (1.5-6.6); NEUTROPHILS % (AUTO) 59.3 %; PLT - PLATELET COUNT 244 10^3/uL (130-450); RED BLOOD COUNT 3.69 10^6/uL (4.20-5.40); RED CELL DISTRIBUTION WIDTH 12.9 % (12.0-15.0); WHITE BLOOD COUNT 6.6 x10^3/uL (4.8-10.8)
[2022-08-20] MEDS: PREGABALIN 100 MG CAPSULE PO SCH ×3 (06:22→21:35)
[2022-08-20] MEDS: LEVOTHYROXINE 75 MCG TABLET PO SCH (06:22)
[2022-08-20 06:26] LABS: BUN - BLOOD UREA NITROGEN < 5 mg/dL (6-20); CALCIUM 8.4 mg/dL (8.5-10.3); CARBON DIOXIDE - CO2 29 mmol/L (21-32); CHLORIDE 110 mmol/L (101-111); CREATININE 0.7 mg/dL (0.4-1.0); GFR - MDRD 83 (>89); GLUCOSE 111 mg/dL (70-100); POTASSIUM 3.6 mmol/L (3.5-5.0); SODIUM 145 mmol/L (135-145)
[2022-08-20] MEDS: LACTATED RINGERS 1,000 ML IV SCH ×2 (08:15→17:48)
[2022-08-20] MEDS: CHOLECALCIFEROL 5,000 UNIT CAPSULE PO SCH (08:17)
[2022-08-20] MEDS: lisinopriL 5 MG TABLET PO SCH (08:17)
[2022-08-20] MEDS: ASPIRIN EC 81 MG TABLET PO SCH (08:18)
[2022-08-20] MEDS: SODIUM CHLORIDE FLUSH 0.9% 10 ML SYRINGE IVP SCH ×3 (08:18→16:23)
[2022-08-20] MEDS: LACTOBACILLUS RHAMNOSUS GG CAPSULE PO SCH (08:18)
[2022-08-20] MEDS: CIPROFLOXACIN 250 MG TABLET PO SCH ×2 (08:18→21:35)
[2022-08-20] MEDS: metroNIDAZOLE 250 MG TABLET PO SCH ×3 (08:18→16:23)
[2022-08-20] MEDS: PANTOPRAZOLE 40 MG TABLET PO SCH (08:18)
[2022-08-20] MEDS: ACETAMINOPHEN 325 MG TABLET PO PRN (08:24)
[2022-08-20] MEDS ORDERED: BUTALB/ACETAM/CAFF 50/325/40MG TABLET PO PRN (10:58)
[2022-08-20] MEDS: CALCIUM CARB (OYSTER SHELL) 500 MG TABLET PO SCH (12:04)
[2022-08-20] MEDS: MAGNESIUM OXIDE 400 MG TABLET PO SCH (12:05)
[2022-08-20] MEDS: HYDROcod/ACETAM 7.5 MG/325 MG TABLET PO PRN ×3 (12:10→21:35)
--- NOTE | 2022-08-20 15:10 | Ultrasound Report ---
PROCEDURE: Duplex Ext Veins Right INDICATIONS: warm hot swollen R calf foot TECHNIQUE: Real-time imaging, as well as color and pulse Doppler interrogation, were performed of the lower extr emity deep veins from the inguinal ligament to the popliteal fossa. COMPARISON: None. FINDINGS: The deep veins are normally compressible, and free of intraluminal thrombus. Color and pu lse Doppler demonstrate normal phasic intraluminal flow. There is normal augmentation response to di stal compression maneuver. IMPRESSION: No evidence of DVT Reviewed by: Cory Tom on 08/20/2022 2:08 PM MANA Approved by: Cory Tom on 08/20/2022 2:08 PM MANA Station ID: [id number]
--- NOTE | 2022-08-20 17:26 | PROVIDER PROGRESS NOTE ---
Progress Note August 20, 2022 5:26 pm Migraine headache today. She usually takes Excedrin but we do not have that on formulary. She had some right calf pain and tenderness. Heat and swelling. More over the foot and ankle than the calf but has been bothering her for couple of days. No fever, chills. Abdomen is getting less and less distended. She is starting to get really hungry. She has been having a full liquid diet with no nausea. The horrific distended bloating with terrible pain is almost completely gone. No blood in her stool. No fever, no chills. Active Medications Acetaminophen (Acetaminophen 325 Mg Tablet) 650 mg PO Q6HR PRN PRN Reason: Pain or Fever > 38C (100.4F) Last Admin: 08/20/22 08:24 Dose: 650 mg Acetaminophen/Butalbital/Caffeine (Butalb/Acetam/Caff 50/325/40mg Tablet) 1 tab PO Q4HR PRN PRN Reason: HEADACHE Last Admin: 08/20/22 11:14 Dose: 1 tab Hydrocodone Bitart/Acetaminophen (Hydrocod/Acetam 7.5 Mg/325 Mg Tablet) 1 tab PO Q4H PRN PRN Reason: PAIN 1-4 Last Admin: 08/20/22 16:23 Dose: 1 tab Aspirin (Aspirin Ec 81 Mg Tablet) 81 mg PO DAILY [facility] Last Admin: 08/20/22 08:18 Dose: 81 mg Calcium Carbonate/Glycine (Calcium Carb (Oyster Shell) 500 Mg Tablet) 1,000 mg PO DAILY@1200 [facility] Last Admin: 08/20/22 12:04 Dose: 1,000 mg Cholecalciferol (Cholecalciferol 5,000 Unit Capsule) 5,000 unit PO DAILY [facility] Last Admin: 08/20/22 08:17 Dose: 5,000 unit Ciprofloxacin (Ciprofloxacin 250 Mg Tablet) 500 mg PO BID [facility] Stop: 08/27/22 20:59 Last Admin: 08/20/22 08:18 Dose: 500 mg Hydromorphone HCl (Hydromorphone 1 Mg/Ml Carpuject) 1 mg IVP Q6H PRN PRN Reason: PAIN 5-7 Last Admin: 08/20/22 04:42 Dose: 1 mg Lactated Ringer's (Lr) 1,000 mls @ 100 mls/hr IV .Q10H [facility] Last Admin: 08/20/22 08:15 Dose: 100 mls/hr Lactobacillus Rhamnosus (Lactobacillus Rhamnosus Gg Capsule) 1 cap PO DAILY [facility] Last Admin: 08/20/22 08:18 Dose: 1 cap Levothyroxine Sodium (Levothyroxine 75 Mcg Tablet) 150 mcg PO QDAC [facility] Last Admin: 08/20/22 06:22 Dose: 150 mcg Lisinopril (Lisinopril 5 Mg Tablet) 10 mg PO DAILY [facility] Last Admin: 08/20/22 08:17 Dose: 10 mg Magnesium Oxide (Magnesium Oxide 400 Mg Tablet) 400 mg PO QDLUNCH [facility] Last Admin: 08/20/22 12:05 Dose: 400 mg Metronidazole (Metronidazole 250 Mg Tablet) 500 mg PO TIDWM [facility] Last Admin: 08/20/22 16:23 Dose: 500 mg Ondansetron HCl (Ondansetron Odt 4 Mg Tablet) 4 mg TL Q6HR PRN PRN Reason: Nausea / Vomiting Pantoprazole Sodium (Pantoprazole 40 Mg Tablet) 40 mg PO DAILY [facility] Last Admin: 08/20/22 08:18 Dose: 40 mg Pregabalin (Pregabalin 100 Mg Capsule) 100 mg PO TID [facility] Last Admin: 08/20/22 14:19 Dose: 100 mg Sodium Chloride (Sodium Chloride Flush 0.9% 10 Ml Syringe) 10 ml IVP PRN PRN PRN Reason: NEEDED PER PROVIDER ORDERS Last Admin: 08/17/22 06:55 Dose: 10 ml Sodium Chloride (Sodium Chloride Flush 0.9% 10 Ml Syringe) 10 ml IVP 0100,0900,1700 [facility] Last Admin: 08/20/22 16:23 Dose: Not Given Alpha Lipoic Acid 600 mg PO DAILY 08/14/22 Aspirin [Vazalore] 81 mg PO DAILY 08/14/22 Cholecalciferol [Vitamin D3] 5,000 unit PO DAILY 08/14/22 Lisinopril [Zestril] 40 mg PO DAILY 08/14/22 Magnesium Oxide [Magnesium] 400 mg PO DAILY 08/14/22 Pregabalin [Lyrica] 100 mg PO TID 08/14/22 Vitamin B Complex 1 each PO DAILY 08/14/22 Calcium Carb (Oyster Shell) [Oysco-500] 3 tab PO BID 08/15/22 HYDROcodone/ACET 7.5/325 [[place] 7.5/325] 1 tab PO Q4H PRN 08/15/22 Levothyroxine Sodium [Synthroid] 1 tab PO DAILY 08/15/22 Exam: Temperature is 36.4. Heart rate 61. Blood pressure 126/84. Respirations 16. 100% on room air. Middle-aged white female who looks younger than stated age. No acute distress. Neck is supple and no JVD Lungs are clear to auscultation and percussion Regular rate and rhythm Abdomen is soft but still protuberant with gassy distention. Less so than yesterday. Hypoactive bowel sounds. No rebound or guarding. Right lower extremity has redness, heat, swelling from the ankle down to the foot. The foot and toes are "sausagelike". Slightly warmer to touch. Not painful. Both extremities, however, have dependent venous stasis changes. Some varicose veins. Lab: BMP is normal. CBC is stable. White cell count is 6.6 and relatively unchanged. Hemoglobin is 11.0. Again relatively unchanged. Sedimentation rate is 44. Unclear why it is come up from 36 of yesterday. She is improving by symptoms and exam Assessment/Plan - Problem List (1) Colitis, acute with ileus Impression: This is a lady who has sudden onset of abdominal pain. Came to the emergency room. CAT scan showed colitis of the distal transverse and down the descending colon to the proximal sigmoid. White cell count was 20.5 thousand. She was started on empiric antibiotic therapy. Clear liquids. By the I advance her diet, switch her over to p.o. Antibiotics. With that she had a backwards course not a progressive course. Abdominal pain became severe enough that she was having vasovagal reactions to the visceral pain on the .. I ordered a KUB and the KUB shows ileus. I switched her to a full liquid diet and kept her on p.o. antibiotics. She is improved from yesterday. She says she feels like she is less distended, less painful. Not fearful about eating. Is actually getting very hungry.Day #6 of Cipro and Flagyl Plan: Continue inpatient stay until the patient is able to take enough p.o. to her safely go home. Advance to a low fiber diet tomorrow morning. She would like some scrambled eggs and toast for breakfast. DC IV fluids today to see if she can maintain fluid intake by mouth Stop antibiotics tomorrow She has a colonoscopy due in the next 4 to 6 weeks. She is already been spoken to by her gastroenterology office. I told her that she should follow-up with them because a colonoscopy in 4 to 6 weeks would be appropriate. (2) Constipation due to opioid therapy,Acute Impression: I initially thought that this was a chronic problem. But she says that she has normal bowel movements prior to this incident of abdominal pain. So the most I am recommending is 32 to 48 ounces of water a day, and increasing her magnesium oxide from once a day to twice a day. (3) Hyperglycemia Impression: Random glucose was elevated on admission. Fasting glucose was 148 on August 15. A1c was 6%. So I feel that she most likely has borderline diet-controlled diabetes type 2. I am recommending outpatient carb restricted diet, and follow- up with her PCP to make sure that this is monitored on a regular basis. (4) Hypokalemia She has had intermittent supplementation with p.o. and IV potassium. Potassium has been normal for the last 2 days. Plan: Continue to monitor daily and supplement as needed (5) hypertension At home she is on lisinopril 40 mg a day. I only resumed 5 mg to avoid giving her hypotension in the face of fluid shifts. Intermittent and infrequent systolic elevation at 149, 151, 156. Diastolic to 94.I increased her lisinopril from 5 mg to 10 mg yesterday. Today blood pressure is 138/85, 114/80, 126/84. Plan: Stay on the current dose. If I do send her home tomorrow, I will most likely cut her lisinopril dose in half. (6) migraine headache Fioricet tablet 1 p.o. every 4 hours as needed prescribed (7) edema right foot Stat venous Doppler to make sure there is no DVT.
[2022-08-21] MEDS: SODIUM CHLORIDE FLUSH 0.9% 10 ML SYRINGE IVP SCH ×2 (00:13→08:21)
[2022-08-21] MEDS: LACTATED RINGERS 1,000 ML IV SCH (03:27)
[2022-08-21] MEDS: HYDROcod/ACETAM 7.5 MG/325 MG TABLET PO PRN (04:23)
[2022-08-21 04:47] LABS: BASOPHILS # (AUTO) 0.1 10^3/uL (0.0-0.1); BASOPHILS % (AUTO) 0.8 %; EOSINOPHILS # (AUTO) 0.2 10^3/uL (0.0-0.7); EOSINOPHILS % (AUTO) 3.8 %; HCT - HEMATOCRIT 34.3 % (37.0-47.0); HGB - HEMOGLOBIN 10.8 g/dL (12.0-16.0); LYMPHOCYTES # (AUTO) 1.9 10^3/uL (1.5-3.5); LYMPHOCYTES % (AUTO) 31.1 %; MEAN CORPUSCULAR HEMOGLOBIN 29.2 pg (27.0-31.0); MEAN CORPUSCULAR HGB CONC 31.5 g/dL (32.0-36.0); MEAN CORPUSCULAR VOLUME 92.7 fL (81.0-99.0); MEAN PLATELET VOLUME 9.7 fL (7.9-10.8); MONOCYTES # (AUTO) 0.8 10^3/uL (0.0-1.0); MONOCYTES % (AUTO) 13.1 %; NEUTROPHILS % (AUTO) 49.9 %; PLT - PLATELET COUNT 275 10^3/uL (130-450); RED CELL DISTRIBUTION WIDTH 12.8 % (12.0-15.0)
[2022-08-21 05:08] LABS: BUN - BLOOD UREA NITROGEN < 5 mg/dL (6-20); CALCIUM 8.1 mg/dL (8.5-10.3); CARBON DIOXIDE - CO2 27 mmol/L (21-32); CHLORIDE 109 mmol/L (101-111); CREATININE 0.7 mg/dL (0.4-1.0); GFR - MDRD 83 (>89); GLUCOSE 106 mg/dL (70-100); POTASSIUM 3.4 mmol/L (3.5-5.0); SODIUM 142 mmol/L (135-145)
[2022-08-21] MEDS: LEVOTHYROXINE 75 MCG TABLET PO SCH (06:23)
[2022-08-21] MEDS: PREGABALIN 100 MG CAPSULE PO SCH ×2 (06:24→13:30)
[2022-08-21] MEDS ORDERED: POTASSIUM BICARB 25 MEQ TABLET PO ONE (07:43)
[2022-08-21] MEDS: PANTOPRAZOLE 40 MG TABLET PO SCH (08:20)
[2022-08-21] MEDS: lisinopriL 5 MG TABLET PO SCH (08:20)
[2022-08-21] MEDS: CIPROFLOXACIN 250 MG TABLET PO SCH (08:20)
[2022-08-21] MEDS: LACTOBACILLUS RHAMNOSUS GG CAPSULE PO SCH (08:20)
[2022-08-21] MEDS: metroNIDAZOLE 250 MG TABLET PO SCH ×2 (08:20→13:30)
[2022-08-21] MEDS: CHOLECALCIFEROL 5,000 UNIT CAPSULE PO SCH (08:20)
[2022-08-21] MEDS: ASPIRIN EC 81 MG TABLET PO SCH (08:20)
[2022-08-21 08:24] VITALS: BP 134/87
[2022-08-21] MEDS ORDERED: POTASSIUM CHLORIDE 10 MEQ CAPSULE PO SCH (09:00)
[2022-08-21] MEDS: CALCIUM CARB (OYSTER SHELL) 500 MG TABLET PO SCH (13:30)
[2022-08-21] MEDS: MAGNESIUM OXIDE 400 MG TABLET PO SCH (13:30)
--- NOTE | 2022-08-21 15:03 | Discharge Plan ---
Discharge Plan Problem Reviewed?: Yes Disposition: Home, Self Care Condition: Stable Diet: Regular (Low fiber, soft) Activity Restrictions: Activity as Tolerated Shower Restrictions: No Driving Restrictions: No Instruction Topics: Colitis Ulcerative Dc Health Concerns: You presented a sudden onset of abdominal pain. Your CAT scan shows colitis of the left side of your bowel. Follow-up examination and x-ray showed you to have what we call ileus or just a slow bowel. You responded to IV antibiotics. You were initially on clear liquids and we have gradually advanced you to pured diet then a low fiber soft diet. The diet still causes you to have abdominal cramping but you do not have bloody diarrhea. Your vital signs are normal with this. Your white cell count is normal with this. During your stay you did have a swollen right foot. We look for blood clots and there were no blood clots. You also had a migraine headache here. Usually you take Excedrin and we do not have that on formulary but we gave you Fioricet. That worked well for your headache. You and I feel like you could go home today. Plan of Treatment: Please see your primary care provider. We will need to see you in follow-up to make sure that they are coordinating care between you and the operating room surgical technologist. He should check blood work such as a CBC and a BMP which checks your white cell count and your potassium and kidneys when he sees you in the office. Signs and symptoms that are alarming and would cause you to return back to the emergency room are inability to pass gas at all. A hard rigid abdomen that is hard is worried. Agonizing pain. Fever. When you were seen by the operating room surgical technologist, you will need a colonoscopy to find out why you had this colitis and ileus. Diet should be low in dairy, low in fiber. Focus on soft smooth easy to digest foods such as noodles, mashed potatoes, white rice. If you are going to eat meat make sure it is due to meat in the form of stew chicken, or stewed pork. I would avoid beef for right now. Maybe even eat some salmon or some tuna. Do not eat a lot of fruits and vegetables since they are higher in fiber and harder to digest. Because of the foot being warm and swollen, elevate it when you sit down. Wear an Tristian wrap that you start at your toes and then come up through the foot into the ankle to have some light compression. Make sure that the toes are covered otherwise you will have sausage toes. Care Goals: To have resolution of your bowel cramping. Assessment: Patient is alert, oriented, promises to follow through with follow-ups. Motivated to go home No Smoking: If you smoke, Please STOP! Call for help. Follow-up with: MAKENZIE MURILLO PA [Primary Care Provider] -
--- NOTE | 2022-08-21 15:08 | DISCHARGE SUMMARY ---
"Discharge Summary Admit Date: 08/16/22 Discharge Date: 08/21/22 Discharging Provider: Nieves Rehman MD Primary Care Provider: BETH Mckeon Code Status: Attempt Resuscitation Condition at Discharge: Stable Discharge Disposition: 01 Home, Self Care - DIAGNOSES Discharge Diagnoses with Status of Each Condition: 1. Acute colitis 2. Functional ileus 3. Hyperglycemia with A1c 6% 4. Hypokalemia 5. Unilateral right foot/calf edema - HPI History of Present Illness: pt presents with abd pain + difficulty having bm, developing over past 1-2 days. she has h/o same about 8 yr ago, resulting in colitis, but she states symptoms were not as severe. denies fevers, chills or vomiting. while in ER, pt was hypotensive and noted to have leukocytosis. CT abd/pelvis noted L sided colitis. pt denies abdominal trauma. she does take hydrocodone daily d/t chronic back pain. She states that this pain was very sudden in onset. It started over the course of half an hour and came from out of nowhere. She has not had any recent travel. No antecedent change in her meds. History - Past Medical History Endocrine/Autoimmune: reports: HyPOthyroidism Other Past Medical History: peripheral neuropathy - Family & Social History Family History Comment/Other: htn Living arrangement: At home Living Situation: With spouse/s.o. - CONSULTS | PROCEDURES Procedures: Stool culture with negative Salmonella Shigella, Campylobacter, E. coli Abdomen pelvis CT on admission had left-sided colitis without evidence of abscess, obstruction, or pneumatosis. Differential diagnosis included infection or less likely ischemic colitis. This patient does not have any risk factors to be with ischemic colitis. Follow-up KUB done 4 days later showed mild gaseous distention of the small and large bowel showing adynamic ileus Venous duplex of the right foot had no evidence of DVT - HOSPITAL COURSE Hospital Course: She was initially treated with empiric antibiotic therapy in the form of IV ciprofloxacin and Flagyl. She was in a clear liquid diet. Throughout her stay she did not have any bloody diarrhea. Just waves of cramping that would cause a severe vasovagal response with lightheadedness, paleness, and diaphoresis. She remained afebrile during her stay and white cell count was never elevated. However sed rate was elevated as high as 44. After a few days she was transition to p.o. antibiotics, and diet was advanced to soft mechanical diet. With that she had return of cramping and severe vasovagal response. So I backed off and put her back on pured diet. She did that until the day before discharge. On the day of discharge she was tried on breakfast and lunch low fiber meal. The first meal resulted in severe cramping with paleness, lightheadedness and diaphoresis. But lunch was well-tolerated. By now she was really wanting to go home. As such, I am sending her home in fair condition. Not completely resolved cramping. KUB shows adynamic ileus present a couple of days ago. But she is passing flatus and having bowel movements. She needs to follow-up with her primary care provider, Magan Dukes. She will need to follow-up with a [place] stroenterologist and have a colonoscopy in the next month. Stool cultures were negative. She tells me that she had 1 colonoscopy with Wilbur lowe. And then she had another 1 with a kiln car repairer at [facility]. To her knowledge her colonoscopies were normal. She is due for screening colonoscopy and already has been interviewed by the GI nurse at [facility] to be scheduled for colonoscopy in the next few weeks. I told her this is perfect timing. She usually has no bowel problems, in spite of chronic opioid use she describes normal daily bowel movements that are soft. No constipation no abdominal pain no bleeding.Potassium was low on the day of disc harge was supplemented by potassium 25 mEq.She will need her primary care provider to check a BMP and a CBC in his office when she sees him in follow-up. I asked her to return to the emergency room if signs or symptoms of severe colitis were to occur. That includes not being able to pass gas, agonizing abdominal pain, fever, sweats. She is discharged in stable condition. She has her hair up and lipstick on. Temperature is 36.4. Heart rate 64. Blood pressure 134/87. Respirations 18. 92% on room air. Well-groomed well-developed and well-nourished 67-year-old female. Neck is supple. Lungs are clear without any respiratory distress. She has a regular rate and rhythm. The abdomen is still soft and achy over the right and left lower quadrant. It is a 2 out of a 10. But no rebound or guarding. Hypoactive bowel sounds. No masses palpable. Slightly bloated and protuberant. Extremities are without edema. She is able to go from supine to sitting, sitting to standing without an assist. She is able to walk to the bathroom, toilet, and get back in bed all on her own. Greater than 30 minutes was spent coordinating discharge. - ALLERGIES Allergies/Adverse Reactions: Allergies Allergy/AdvReac Type Severity Reaction Status Date / Time erythromycin base AdvReac Unknown Verified 08/19/22 17:12 - MEDICATIONS Home Medications: Ambulatory Orders Medication Instructions Recorded Confirmed Alpha Lipoic Acid 600 mg PO DAILY 08/14/22 08/14/22 Aspirin [Vazalore] 81 mg PO DAILY 08/14/22 08/14/22 Cholecalciferol [Vitamin D3] 5,000 unit PO DAILY 08/14/22 08/14/22 Lisinopril [Zestril] 40 mg PO DAILY 08/14/22 08/14/22 Magnesium Oxide [Magnesium] 400 mg PO DAILY 08/14/22 08/14/22 Pregabalin [Lyrica] 100 mg PO TID 08/14/22 08/15/22 Vitamin B Complex 1 each PO DAILY 08/14/22 08/14/22 Calcium Carb (Oyster Shell) 3 tab PO BID 08/15/22 08/15/22 [Oysco-500] HYDROcodone/ACET 7.5/325 [[place]ona 1 tab PO Q4H PRN 08/15/22 08/15/22 7.5/325] Levothyroxine Sodium [Synthroid] 1 tab PO DAILY 08/15/22 08/15/22 Acetaminophen [Tylenol] 650 mg PO Q6HR PRN tab 08/21/22 - PHYSICAL EXAM AT DISCHARGE Skin: positive: Warm, Dry - LABS Result Diagrams: 08/21/22 04:17 08/21/22 04:17"
== END 2022-08-21 15:36 | disposition home or self-care (01) | DRG 392 ==
LOC: ED 21:43 → MS3 08-15 04:36 → MS2 08-18 18:43
PROVIDERS: ADMIT Student in an Organized Health Care Education/Training Program; ATTEND Specialist
DX: K52.9 Noninfective gastroenteritis and colitis, unspecified (principal); M54.9 Dorsalgia, unspecified; G89.29 Other chronic pain; D72.829 Elevated white blood cell count, unspecified; K56.7 Ileus, unspecified; G62.9 Polyneuropathy, unspecified; E87.6 Hypokalemia; R60.0 Localized edema; I10 Essential (primary) hypertension; E03.9 Hypothyroidism, unspecified; K59.03 Drug induced constipation; T40.2X5A Adverse effect of other opioids, initial encounter; Y92.009 Unspecified place in unspecified non-institutional (private) residence as the place of occurrence of the external cause; E11.65 Type 2 diabetes mellitus with hyperglycemia; E11.42 Type 2 diabetes mellitus with diabetic polyneuropathy; G43.909 Migraine, unspecified, not intractable, without status migrainosus
CPT/HCPCS: 36415; 74018; 74177; 80048; 80053; 80061; 81003; 83036; 83605; 83690; 83735; 84439; 84443; 85025; 85651; 86140; 87045; 87046; 87427; 93971; 96365; 96366; 96368; 96375; 96376; 99285; A9270; J1170; J7120; Q9963; Q9967; 81001; 83721; 87086